=== PATIENT | male | born 1995 | race Caucasian/White ===

== ENCOUNTER 2020-04-21 20:29 | Emergency (ER) | payer SELFPAY ==
[~2020-04-21] VITALS: Ht 167.6 cm; Wt 84.0 kg
[2020-04-21 21:07] VITALS: BP 162/75
[2020-04-21] MEDS ORDERED: SULF1TAB24 PO (21:58)
[2020-04-21] MEDS ORDERED: CEPH-264 PO (21:58)
--- NOTE | 2020-04-21 22:25 | PHYS DOC ---
Past Medical History Past Medical History: GERD, Other Additional Past Medical Histor: SEVERE GERD WITH "LINX PUMP" Past Surgical History: Other Additional Past Surgical Histo: LINX PUMP, BILAT KNEES, TONSILS Smoking Status: Never Smoker Alcohol Use: None General Adult EDM: Chief Complaint: INSECT BITE HPI: HPI: Patient is a 25 year old male presents for evaluation of redness and wound right lower extremity. Patient noticed a skin lesion right calf yesterday. Today area is firm with erythema surrounding. Patient recently had a tattoo in the current location. Significant other states yesterday there was a hair in particular location that she pulled out. There is a firm area that is nonfluctuant that has a central scab-like wound. There is surrounding erythema that feels warm to the touch. At this time I do not believe there is any abscess that can be drained. Patient would like to try antibiotics first. Area is underneath a brand-new tattoo that patient just had placed. Review of Systems: Review of Systems: Constitutional: Denies fever or chills. [] Eyes: Denies change in visual acuity. [] HENT: Denies nasal congestion or sore throat. [] Respiratory: Denies cough or shortness of breath. [] Cardiovascular: Denies chest pain or edema. [] GI: Denies abdominal pain, nausea, vomiting, bloody stools or diarrhea. [] : Denies dysuria. [] Musculoskeletal: Denies back pain or joint pain. [] Integument: Positive erythema nonfluctuant wound right calf Neurologic: Denies headache, focal weakness or sensory changes. [] Endocrine: Denies polyuria or polydipsia. [] Lymphatic: Denies swollen glands. [] Psychiatric: Denies depression or anxiety. [] Heart Score: Risk Factors: Risk Factors: DM, Current or recent (<one month) smoker, HTN, HLP, family history of CAD, obesity. Risk Scores: Score 0 - 3: 2.5% MACE over next 6 weeks - Discharge Home Score 4 - 6: 20.3% MACE over next 6 weeks - Admit for Clinical Observation Score 7 - 10: 72.7% MACE over next 6 weeks - Early Invasive Strategies Allergies: Allergies: Allergies Coded Allergies Type Severity Reaction Last Updated Verified No Known Drug Allergies 04/21/20 No Physical Exam: PE: Constitutional: Well developed, well nourished, no acute distress, non-toxic appearance. [] HENT: Normocephalic, atraumatic, bilateral external ears normal, oropharynx moist, no oral exudates, nose normal. [] Eyes: PERRLA, EOMI, conjunctiva normal, no discharge. [] Neck: Normal range of motion, no tenderness, supple, no stridor. [] Cardiovascular:Heart rate regular rhythm, no murmur [] Lungs & Thorax: Bilateral breath sounds clear to auscultation [] Abdomen: Bowel sounds normal, soft, no tenderness, no masses, no pulsatile masses. [] Skin: There is a firm area that is nonfluctuant that has a central scab-like wound. There is surrounding erythema that feels warm to the touch Back: No tenderness, no CVA tenderness. [] Extremities: No tenderness, no cyanosis, no clubbing, ROM intact, no edema. [] Neurologic: Alert and oriented X 3, normal motor function, normal sensory function, no focal deficits noted. [] Psychologic: Affect normal, judgement normal, mood normal. [] Current Patient Data: Vital Signs: Vital Signs Date Time Temp Pulse Resp B/P (MAP) Pulse Ox O2 Delivery O2 Flow Rate FiO2 04/21/20 21:07 98.5 82 20 162/75 (104) 97 Room Air 98.5 EKG: EKG: [] Radiology/Procedures: Radiology/Procedures: [] Course & Med Decision Making: Course & Med Decision Making Pertinent Labs and Imaging studies reviewed. (See chart for details) [] Patient placed on Keflex and Bactrim. Patient advised to be reevaluated in 3 to 4 days. Steven Disclaimer: Steven Disclaimer: This electronic medical record was generated, in whole or in part, using a voice recognition dictation system. Departure Departure Impression: Primary Impression: Cellulitis Disposition: 01 HOME, SELF-CARE Condition: STABLE Patient Instructions: Cellulitis, Abscess, [id number] Scripts Sulfamethoxazole/Trimethoprim (BACTRIM DS TABLET) 1 Each Tablet 1 TAB PO BID for 10 Days, #20 TAB 0 Refills Prov: MELVIN JETER DO 04/21/20 Cephalexin (KEFLEX) 500 Mg Capsule 500 MG PO QID for 10 Days, #40 CAP Prov: MELVIN JETER DO 04/21/20 Justicifation of Admission Dx: Justifications for Admission: Justification of Admission Dx: N/A MELVIN JETER I DO Apr 21, 2020 22:25
== END 2020-04-21 22:06 | disposition home or self-care (01) ==
LOC: ER 20:29
DX: L03.115 Cellulitis of right lower limb (principal); F17.200 Nicotine dependence, unspecified, uncomplicated
CPT/HCPCS: 99283